=== PATIENT | female | born 1980 | race Two or more races ===

== ENCOUNTER 2020-10-14 14:27 | Emergency (ER) | payer MEDICAID, OTHER ==
[~2020-10-14] VITALS: Ht 160 cm; Wt 54.4 kg
[2020-10-14 18:57] LABS: Urine Bacteria NONE SEEN /hpf (None Seen); Urine Blood 1+ /uL (Negative); Urine Mucus FEW (None Seen); Urine Specific Gravity 1.033 (1.001-1.035); Urine WBC 9 /hpf (0 - 5)
[2020-10-14 19:30] VITALS: BP 110/62
== END 2020-10-14 19:33 | disposition home or self-care (01) ==
LOC: ER 14:27
DX: N39.0 Urinary tract infection, site not specified (principal); F17.210 Nicotine dependence, cigarettes, uncomplicated
CPT/HCPCS: 81001; 81025

== ENCOUNTER 2021-06-14 11:06 | Emergency (ER) | payer MEDICAID, OTHER ==
[~2021-06-14] VITALS: Ht 162.6 cm; Wt 54.4 kg
[2021-06-14] MEDS ORDERED: SODIUM CHLORIDE 0.9% 1,000 ML IVB ONE (11:45)
[2021-06-14] MEDS ORDERED: KETOROLAC TROMETH 30 MG/ML 1ML VIAL IV ONE (11:45)
[2021-06-14] MEDS ORDERED: ONDANSETRON HCL 4 MG/2 ML VIAL IV ONE (11:45)
[2021-06-14 12:05] LABS: Basophils # (auto) 0.1 10 ^3/uL (0-0.2); Eosinophils # (auto) 0.2 10 ^3/uL (0-0.8); Eosinophils % (auto) 2.8 % (0.0-7.0); Hematocrit 40.6 % (36.0-46.0); Hemoglobin 13.8 g/dL (12.2-16.2); Lymphocytes # (auto) 1.4 10 ^3/uL (0.4-5.4); Lymphocytes % (auto) 20.8 % (10.0-50.0); Mean Corpuscular Hemoglobin 30.5 pg (28.0-32.0); Mean Corpuscular Hgb Conc. 33.9 g/dL (32.0-36.0); Mean Corpuscular Volume 89.9 fL (80.0-100.0); Monocytes # (auto) 0.6 10 ^3/uL (0-1.3); Monocytes % (auto) 8.6 % (0.0-12.0); Neutrophils # (auto) 4.6 10 ^3/uL (1.6-8.6); Neutrophils % (auto) 66.8 % (37.0-80.0); Nucleated Red Blood Cells % 0.1 %; Red Blood Cells 4.52 10^6/uL (4.0-5.20); Red Cell Distribution Width 12.5 % (11.8-14.3); White Blood Cell 6.8 10^3/uL (4.4-10.8)
[2021-06-14 12:30] LABS: Potassium 4.1 mmol/L (3.5-5.1)
[2021-06-14 12:36] LABS: Urine Bacteria NONE SEEN /hpf (None Seen); Urine Blood 1+ /uL (Negative); Urine Specific Gravity 1.026 (1.001-1.035); Urine WBC 1 /hpf (0 - 5)
[2021-06-14 12:41] LABS: Albumin 3.5 g/dL (3.4-5.0); BUN/Creatinine Ratio 30.9; Bilirubin, Total 0.3 mg/dL (0.2-1.0); Calcium 8.5 mg/dL (8.5-10.1)
[2021-06-14 13:13] VITALS: BP 120/58
== END 2021-06-14 14:25 | disposition home or self-care (01) ==
LOC: ER 11:06
DX: R10.9 Unspecified abdominal pain (principal); M54.9 Dorsalgia, unspecified; F17.210 Nicotine dependence, cigarettes, uncomplicated
CPT/HCPCS: 36415; 74176; 80053; 81001; 81025; 83690; 85025; 96361; 96374; 96375; 99284; J1885; J2405; J7030

== ENCOUNTER 2021-07-08 17:37 | Emergency (ER) | payer OTHER ==
[~2021-07-08] VITALS: Ht 160 cm; Wt 58.1 kg
[2021-07-08 21:29] VITALS: BP 101/67
[2021-07-08] MEDS ORDERED: KETOROLAC TROMETH 60MG/2ML VIAL ONE (21:41)
[2021-07-08] MEDS ORDERED: KETOROLAC TROMETH 60MG/2ML VIAL IM ONE (21:45)
== END 2021-07-08 21:38 | disposition home or self-care (01) ==
LOC: ER 17:37
DX: S39.012A Strain of muscle, fascia and tendon of lower back, initial encounter (principal); M54.42 Lumbago with sciatica, left side; F17.210 Nicotine dependence, cigarettes, uncomplicated; X58.XXXA Exposure to other specified factors, initial encounter; Y93.89 Activity, other specified; Y92.89 Other specified places as the place of occurrence of the external cause; Y99.8 Other external cause status
CPT/HCPCS: 72100; 96372; 99283; J1885

== ENCOUNTER 2021-08-30 02:53 | Emergency (ER) | payer OTHER ==
[~2021-08-30] VITALS: Ht 157.5 cm; Wt 59.4 kg
[2021-08-30] MEDS ORDERED: TETRACAINE HCL 0.5% OPTH(EYE) SOLN 4ML RIGHTEYE ONE (04:45)
[2021-08-30] MEDS ORDERED: FLUORESCEIN SOD OPTH TEST STRIP RIGHTEYE ONE (04:45)
[2021-08-30 05:08] VITALS: BP 152/95
== END 2021-08-30 05:23 | disposition home or self-care (01) ==
LOC: ER 02:54
DX: H10.33 Unspecified acute conjunctivitis, bilateral (principal); H53.141 Visual discomfort, right eye; L56.8 Other specified acute skin changes due to ultraviolet radiation; F17.210 Nicotine dependence, cigarettes, uncomplicated

== ENCOUNTER 2021-11-16 00:37 | Emergency (ER) | payer OTHER ==
[~2021-11-16] VITALS: Ht 160 cm; Wt 63.5 kg
[2021-11-16 01:52] LABS: Basophils # (auto) 0.1 10 ^3/uL (0-0.2); Basophils % (auto) 0.8 % (0.0-2.0); Eosinophils # (auto) 0.2 10 ^3/uL (0-0.8); Eosinophils % (auto) 2.5 % (0.0-7.0); Hematocrit 41.1 % (36.0-46.0); Hemoglobin 14.2 g/dL (12.2-16.2); Lymphocytes # (auto) 2.5 10 ^3/uL (0.4-5.4); Lymphocytes % (auto) 25.8 % (10.0-50.0); Mean Corpuscular Hgb Conc. 34.5 g/dL (32.0-36.0); Mean Corpuscular Volume 89.9 fL (80.0-100.0); Monocytes # (auto) 0.8 10 ^3/uL (0-1.3); Monocytes % (auto) 8.1 % (0.0-12.0); Neutrophils # (auto) 6.1 10 ^3/uL (1.6-8.6); Neutrophils % (auto) 62.8 % (37.0-80.0); Nucleated Red Blood Cells % 0.1 %; Red Blood Cells 4.57 10^6/uL (4.0-5.20); Red Cell Distribution Width 12.8 % (11.8-14.3); White Blood Cell 9.7 10^3/uL (4.4-10.8)
[2021-11-16 02:10] LABS: INR 0.99 (0.9-1.15)
[2021-11-16 02:13] LABS: Urine Bacteria FEW /hpf (None Seen); Urine Blood Negative /uL (Negative); Urine WBC 2 /hpf (0 - 5)
[2021-11-16 02:16] LABS: Albumin 3.4 g/dL (3.4-5.0); Calcium 8.6 mg/dL (8.5-10.1); Potassium 4.3 mmol/L (3.5-5.1)
[2021-11-16 02:17] LABS: Bilirubin, Total 0.3 mg/dL (0.2-1.0); Total Protein 6.5 g/dL (6.4-8.2)
[2021-11-16] MEDS: IOHEXOL 300 MG/ML 100ML BOTTLE IJ ONE (03:55)
[2021-11-16 05:32] VITALS: BP 121/52
[2021-11-16] MEDS: LIDOCAINE VISCOUS 2% 15ML UD PO ONE (06:49)
[2021-11-16] MEDS: DONNATAL 5ml ORAL Elix (BELLADONNA ALK-PHENOBARB) PO ONE (06:49)
[2021-11-16] MEDS: ALUM & MAG HYDROX-SIMETH LIQ(MAALOX) 30 ML PO ONE (06:49)
== END 2021-11-16 07:05 | disposition home or self-care (01) ==
LOC: ER 00:37
DX: K27.9 Peptic ulcer, site unspecified, unspecified as acute or chronic, without hemorrhage or perforation (principal); F17.210 Nicotine dependence, cigarettes, uncomplicated; Z20.822 Contact with and (suspected) exposure to COVID-19
CPT/HCPCS: 36415; 74177; 80053; 81001; 83605; 83690; 85025; 85610; 87426; 99285; Q9967